=== PATIENT | male | born 1990 | race Caucasian/White ===

== ENCOUNTER 2020-04-14 16:55 | Outpatient (REF) | payer BC, SELFPAY ==
--- NOTE | 2020-04-14 16:59 | XR_ITS ---
EXAMINATION: XR CHEST CLINICAL INFORMATION: Shortness of breath. COMPARISON: None TECHNIQUE: 2 views of the chest were obtained. FINDINGS: No significant abnormality is noted involving the heart, lungs, mediastinum, bony thorax or soft tissues. XR/XR chest 2V IMPRESSION: Unremarkable chest examination.
== END 2020-04-14 16:56 | disposition home or self-care (01) ==
LOC: HO.HMGCX 16:55
PROVIDERS: PCP Nurse Practitioner Family; Visit Provider Nurse Practitioner Family
DX: R06.02 Shortness of breath (principal); Z20.828 Contact with and (suspected) exposure to other viral communicable diseases
CPT/HCPCS: 71046; U0003